=== PATIENT | male | born 1970 | race Caucasian/White ===

== ENCOUNTER 2017-05-17 21:31 | Emergency (ER) | payer OTHER ==
[~2017-05-17] VITALS: Ht 175.3 cm; Wt 174.8 kg
[~2017-05-17 21:31] MED LIST: ASPI81 PO; GLUC500C56 PO; LEVO.05 PO; LEXA20TA PO; METO25 PO; ONDA1TAB16 PO; OYST500T77 PO; TAB-TAB PO; VITA100T5 PO
[2017-05-17] MEDS ORDERED: DICY10 PO (21:51)
[2017-05-17] MEDS ORDERED: ESCI20TA PO (21:51)
[2017-05-17] MEDS ORDERED: BUPR300T PO (21:51)
[2017-05-17] MEDS ORDERED: MULTTAB67 PO (21:51)
[2017-05-17] MEDS ORDERED: LEVO50TA4 PO (21:51)
[2017-05-17] MEDS ORDERED: ALPR0.5T3 PO (21:51)
[2017-05-17] MEDS ORDERED: ASPI81CH6 CHEW (21:51)
[2017-05-17] MEDS ORDERED: CALC12502 PO (21:51)
[2017-05-17] MEDS ORDERED: LOSA25TA PO (21:51)
[2017-05-17] MEDS ORDERED: ROBA500T PO (21:51)
[2017-05-17 21:55] VITALS: BP 164/73; PULSE 73; RESP 18; TEMP 98.6; O2SAT 96
[2017-05-17 22:45] VITALS: BP 145/67; PULSE 65; RESP 18; O2SAT 98
--- NOTE | 2017-05-17 22:53 | PD ---
HPI Chief Complaint: Hypertension Time Seen by Provider: 22:12 Travel History International Travel<30 days: No Contact w/Intl Traveler<30days: No Traveled to known affect area: No History of Present Illness HPI 46-year-old male with history of hypertension here for evaluation of elevated blood pressure. The patient reports that he was having some neck spasms in his neck which he usually has, however he decided to check his blood pressure and it was elevated after work today. He noticed it was slightly elevated yesterday , however today was 160/100 systolic. He took an extra half of his losartan without any improvement. He is having a slight headache. No chest pain or dyspnea. No paresthesias or motor deficits. He had some spots in his vision earlier today, however this has resolved. No diplopia or blurry vision. PFSH Past Medical History Hx Anticoagulant Therapy: Yes (asa) Arthritis: Yes Asthma: No Autoimmune Disease: No Blood Disorders: No Anxiety: Yes Depression: Yes Heart Rhythm Problems: No Cancer: No Cardiovascular Problems: Yes (htn) High Cholesterol: Yes Chest Pain: No Congestive Heart Failure: No COPD: No Diabetes: No Diminished Hearing: Yes ([place]IL[place]) Gastrointestinal Disorders: Yes (IBSD) Headaches: Yes Hypertension: Yes Kidney Stones: Yes (1.5YRS AGO) Respiratory: Yes Myocardial Infarction: No Renal Failure: No Thyroid Disease: Yes (HYPOTHYROID) Tetanus Vaccination: Unknown Influenza Vaccination: Yes Past Surgical History Abdominal Surgery: Yes (gastric bypass) AICD: No Cardiac Surgery: No Ear Surgery: No Endocrine Surgery: No Eye Surgery: No Genitourinary Surgery: No Gynecologic Surgery: No Hysterectomy: Yes Insulin Pump: No Neurologic Surgery: No Oral Surgery: No Pacemaker: No Thoracic Surgery: No Tonsillectomy: Yes Other Surgery: Yes ((nose)) Social History Alcohol Use: Yes (OCC) Tobacco Use: No Substance Use: No Allergies-Medications (Allergen,Severity, Reaction): Coded Allergies: Sulfa (Sulfonamide Antibiotics) (Unverified Allergy, Severe, 05/17/17) ampicillin (Unverified Allergy, Severe, 05/17/17) diclofenac (Unverified Allergy, Severe, 05/17/17) etodolac (Unverified Allergy, Severe, 05/17/17) flurbiprofen (Unverified Allergy, Severe, 05/17/17) ibuprofen (Unverified Allergy, Severe, 05/17/17) indomethacin (Unverified Allergy, Severe, 05/17/17) ketoprofen (Unverified Allergy, Severe, 05/17/17) ketorolac (Unverified Allergy, Severe, 05/17/17) naproxen (Unverified Allergy, Severe, 05/17/17) oxaprozin (Unverified Allergy, Severe, 05/17/17) penicillin G (Unverified Allergy, Severe, 05/17/17) promethazine (Unverified Allergy, Severe, 05/17/17) venlafaxine (Unverified Allergy, Severe, 05/17/17) acetaminophen (Unverified Allergy, Mild, 05/17/17) cyclobenzaprine (Unverified Allergy, Mild, 05/17/17) hydrocodone (Unverified Allergy, Mild, 05/17/17) Reported Meds & Prescriptions Reported Meds & Active Scripts Active Reported Escitalopram (Escitalopram Oxalate) 20 Mg Tab 20 Mg PO DAILY Bentyl (Dicyclomine HCl) 10 Mg Cap 20 Mg PO DAILY Robaxin (Methocarbamol) 500 Mg Tab 1,000 Mg PO QID PRN Bupropion HCl ER 24 HR (Bupropion HCl) 300 Mg Tab 300 Mg PO DAILY Losartan (Losartan Potassium) 25 Mg Tab 12.5 Mg PO DAILY Alprazolam 0.5 Mg Tab 0.5 Mg PO DAILY PRN Levothyroxine (Levothyroxine Sodium) 50 Mcg Tab 50 Mcg PO DAILY Aspirin Low Dose (Aspirin) 81 Mg Chew 81 Mg CHEW DAILY Calcium (Oyster Shell) 500 Mg Calcium (1250 Mg) Tab 500 Mg PO DAILY Multiple Vitamin 1 Tab 1 Tab PO DAILY Review of Systems Except as stated in HPI: all other systems reviewed are Neg Physical Exam Narrative GENERAL: Well-developed, well-nourished, overweight, comfortable, no apparent distress. SKIN: Focused skin assessment warm/dry. HEAD: Atraumatic. Normocephalic. EYES: Pupils equal and round. No scleral icterus. No injection or drainage. ENT: Mucous membranes pink and moist. NECK: Trachea midline. No JVD. CARDIOVASCULAR: Regular rate and rhythm. RESPIRATORY: No accessory muscle use. Clear to auscultation. Breath sounds equal bilaterally. GASTROINTESTINAL: Abdomen soft, non-tender, nondistended. MUSCULOSKELETAL: No obvious deformities. No clubbing. No cyanosis. No edema. NEUROLOGICAL: Awake and alert. No obvious cranial nerve deficits. Motor grossly within normal limits. Normal speech. PSYCHIATRIC: Appropriate mood and affect; insight and judgment normal. Data Data Last Documented VS Vital Signs Date Time Temp Pulse Resp B/P (MAP) Pulse Ox O2 Delivery O2 Flow Rate FiO2 05/17/17 22:45 65 18 145/67 (93) 98 Room Air 05/17/17 21:55 98.6 Orders Orders Electrocardiogram (05/17/17 ) [facility] Medical Decision Making Medical Screen Exam Complete: Yes Emergency Medical Condition: Yes Interpretation(s) EKG: Sinus, rate 62, leftward axis, normal intervals, LVH, no acute ischemic abnormality. Differential Diagnosis Essential hypertension, uncontrolled hypertension, hypertensive crisis Narrative Course Initial blood pressure was 164/73. Repeat blood pressure is 145/67. The rest of his vital signs are within normal limits. Patient is not displaying any signs or symptoms of hypertensive crisis. At this point he is stable for discharge home with outpatient follow-up with his primary care physician this week. He takes 25 mg of losartan daily, and takes this in the morning. I told him he should increase this to twice daily. He is advised on when to return to the emergency department. He verbalizes understanding and agreement with plan. Diagnosis Primary Impression: Elevated blood pressure reading Referrals: Primary Care Physician 3 days Additional Instructions: Follow-up with your primary care physician this week. Take 25 mg of your losartan twice daily. Return to the emergency department for worsening symptoms or any other concerns as discussed. Disposition: 01 DISCHARGE HOME Condition: Stable Rene Hernández MD May 17, 2017 22:53
--- NOTE | 2017-05-18 21:38 | EKG ---
Date Performed: 05/17/2017 Time Performed: 22:27:19 PTAGE: 46 years EKG: Sinus rhythm MODERATE VOLTAGE CRITERIA FOR LVH, CONSIDER NORMAL VARIANT PROBABLE LATERAL MYOCARDIAL INFARCTION AB NORMAL ECG PREVIOUS TRACING : 10/20/2009 12.20 Compared to the previous tracing rate faster DOCTOR: Derrick Jennings Interpretating Date/Time 05/18/2017 21:36:36
== END 2017-05-17 23:05 | disposition home or self-care (01) ==
LOC: PHED 21:31
DX: I10 Essential (primary) hypertension (principal); R25.2 Cramp and spasm; M19.90 Unspecified osteoarthritis, unspecified site; F32.9 Major depressive disorder, single episode, unspecified; E78.00 Pure hypercholesterolemia, unspecified; H93.13 Tinnitus, bilateral; K58.0 Irritable bowel syndrome with diarrhea; R51 Headache; E03.9 Hypothyroidism, unspecified; Z98.84 Bariatric surgery status; Z88.6 Allergy status to analgesic agent; Z88.2 Allergy status to sulfonamides; Z88.0 Allergy status to penicillin
CPT/HCPCS: 93005